=== PATIENT | female | born 1955 | race Caucasian/White ===

== ENCOUNTER 2016-11-22 14:28 | Emergency (ER) | payer MEDICARE ==
--- NOTE | 2016-11-22 14:36 | ED Physician Chart ---
Chief Complaint/HPI - Patient Information Date Seen:: 11/22/16 Time Seen:: 14:30 Chief Complaint:: shortness of breath History of Present Illness:: 61-year-old female history of asthma, complains of acute, worsening, constant, severe, shortness of breath times one week. Has associated nausea but no vomiting. Historian:: Patient Review:: Nurse's Note Reviewed Review of Systems - Review of Systems Other: Complete system review otherwise unremarkable except as noted in history of present illness. Past Medical History - Past Medical History Past Medical History: HTN, Asthma/COPD, Other (recent compression fractures of multiple lumbar vertebrae, fibromyalgia, cyclic vomiting and constant nausea) Family History: None Social History: Non Smoker, No Alcohol, No Drug Use, Surgical History: None Psychiatricy History: None Medication: Reviewed Family Medical History - Family Member Mother History Unknown: Yes Physical Exam - Physical Examination Other:: INITIAL VITAL SIGNS: Reviewed by me GENERAL: Alert and interactive. In mild respiratory distress HEAD: Head is normocephalic and atraumatic EYES: EOMI. PERRL. No scleral icterus. No conjunctival injection ENT: Moist mucous membranes. NECK: Supple. No masses. Full range of motion RESPIRATORY: Slightly tachypneic with bilateral expiratory wheezing. CV: Regular rate and rhythm. No murmurs, rubs, or gallops ABDOMEN: Soft, non-distended, non-tender. No guarding. No rebound. No masses. EXTREMITIES: No deformity. No cyanosis. No edema. SKIN: Warm and dry. No obvious rashes. NEUROLOGIC: Alert and oriented. Face is symmetric. Speech is normal. Moves all extremities equally. Motor and sensory distally intact. Labs/Radiology/EKG Results - Lab Results Results: Lab Results 11/22/16 11/22/16 11/22/16 Range/Units 14:50 14:50 14:50 WBC 6.1 (4.8-10.8) Th/cmm RBC 4.40 (3.80-5.10) Mil/cmm Hgb 13.0 (11.7-15.5) gm/dL Hct 38.5 (35.0-45.0) % MCV 87.4 (81-100) fl MCH 29.5 (27.0-31.0) pg MCHC Differential 33.7 (28.0-36.0) pg RDW 13.0 (11.5-20.0) % Plt Count 217 (150-400) Th/cmm MPV 9.1 fl Neutrophils (Manual) 55 (40-80) % Lymphocytes 30 (20-50) % Monocytes 3 (2-10) % Eosinophils 11 H (0-5) % Basophils 1 (0-3) % Platelet Estimate ADEQUATE (NORMAL) Platelet Morphology NORMAL (NORMAL) RBC Morph Micro Appear NORMAL (NORMAL) PT 10.9 (9.5-11.5) SECONDS INR 1.05 (0.5-1.4) PTT (Actin FS) 25.6 L (26.0-38.0) SECONDS Sodium 137 (136-145) mEq/L Potassium 3.5 (3.5-5.1) mEq/L Chloride 107 (98-107) mEq/L Carbon Dioxide 24.9 (21.0-31.0) mEq/L Anion Gap 8.6 (7.0-16.0) BUN 8 (7-25) mg/dL Creatinine 0.6 (0.6-1.2) mg/dL Est GFR ( Amer) > 60.0 (>90) ml/min Est GFR (Non-Af Amer) > 60.0 ml/min BUN/Creatinine Ratio 13.3 Glucose 94 (70-105) mg/dL Whole Bld Lactic Acid (0.60-1.99) mmol/L Calcium 9.9 (8.6-10.3) mg/dL Total Bilirubin 0.5 (0.3-1.0) mg/dL AST 26 (13-39) U/L ALT 17 (7-52) U/L Alkaline Phosphatase 68 (34-104) U/L Creatine Kinase 78 (30-223) U/L Total Protein 7.3 (6.0-8.3) gm/dL Albumin 4.1 (3.7-5.3) gm/dL Globulin 3.2 gm/dL Albumin/Globulin Ratio 1.3 (1.0-1.8) Lipase (11-82) U/L Urine Source Urine Color Urine Clarity (CLEAR) Urine pH Ur Specific [place] (1.005-1.030) Urine Protein (NEGATIVE) mg/dL Urine Glucose (UA) (NEGATIVE) mg/dL Urine Ketones (NEGATIVE) mg/dL Urine Blood (NEGATIVE) Urine Nitrate (NEGATIVE) Urine Bilirubin (NEGATIVE) Urine Urobilinogen (0.2 - 1.0) E.U./dL Ur Leukocyte Esterase (NEGATIVE) Urine RBC (0-5) /hpf Urine WBC (0-5) /hpf Ur Epithelial Cells (FEW) /lpf Urine Bacteria (NONE SEEN) /hpf 11/22/16 11/22/16 11/22/16 Range/Units 14:50 14:50 15:24 WBC (4.8-10.8) Th/cmm RBC (3.80-5.10) Mil/cmm Hgb (11.7-15.5) gm/dL Hct (35.0-45.0) % MCV (81-100) fl MCH (27.0-31.0) pg MCHC Differential (28.0-36.0) pg RDW (11.5-20.0) % Plt Count (150-400) Th/cmm MPV fl Neutrophils (Manual) (40-80) % Lymphocytes (20-50) % Monocytes (2-10) % Eosinophils (0-5) % Basophils (0-3) % Platelet Estimate (NORMAL) Platelet Morphology (NORMAL) RBC Morph Micro Appear (NORMAL) PT (9.5-11.5) SECONDS INR (0.5-1.4) PTT (Actin FS) (26.0-38.0) SECONDS Sodium (136-145) mEq/L Potassium (3.5-5.1) mEq/L Chloride (98-107) mEq/L Carbon Dioxide (21.0-31.0) mEq/L Anion Gap (7.0-16.0) BUN (7-25) mg/dL Creatinine (0.6-1.2) mg/dL Est GFR ( Amer) (>90) ml/min Est GFR (Non-Af Amer) ml/min BUN/Creatinine Ratio Glucose (70-105) mg/dL Whole Bld Lactic Acid 1.18 (0.60-1.99) mmol/L Calcium (8.6-10.3) mg/dL Total Bilirubin (0.3-1.0) mg/dL AST (13-39) U/L ALT (7-52) U/L Alkaline Phosphatase (34-104) U/L Creatine Kinase (30-223) U/L Total Protein (6.0-8.3) gm/dL Albumin (3.7-5.3) gm/dL Globulin gm/dL Albumin/Globulin Ratio (1.0-1.8) Lipase 6 L (11-82) U/L Urine Source CLEAN C Urine Color YELLOW Urine Clarity CLEAR (CLEAR) Urine pH 8.5 Ur Specific [place] 1.015 (1.005-1.030) Urine Protein TRACE (NEGATIVE) mg/dL Urine Glucose (UA) NEGATIVE (NEGATIVE) mg/dL Urine Ketones TRACE (NEGATIVE) mg/dL Urine Blood NEGATIVE (NEGATIVE) Urine Nitrate NEGATIVE (NEGATIVE) Urine Bilirubin NEGATIVE (NEGATIVE) Urine Urobilinogen 0.2 (0.2 - 1.0) E.U./dL Ur Leukocyte Esterase NEGATIVE (NEGATIVE) Urine RBC NONE SEEN (0-5) /hpf Urine WBC 2-5 (0-5) /hpf Ur Epithelial Cells FEW (FEW) /lpf Urine Bacteria FEW (NONE SEEN) /hpf - Radiology Results Results: CT abdomen and pelvis without contrast per radiology No evidence of bowel obstruction Appendix not well visualized Pancreatic atrophy with mild haziness of the pancreatic fat planes changes associated pancreatitis currently excluded. Please correlate clinically. 7 mm left renal stone with no evidence of hydronephrosis For similar left renal cyst Moderate hiatal hernia Spinal compression deformities may be due to osteopenia most pronounced at L1 50 % loss of height and 3 mm posterior retropulsion. Findings are probably chronic. No increase of the kyphosis. Correlate with clinical findings. Single AP VIEW Portable Chest X-ray was interpreted independently and contemporaneously by Cee Marquez MD: No cardiomegaly Normal mediastinum No lung infiltrates No pneumothorax No soft tissue or bony abnormalities - EKG Interpretations Comments:: 12-lead EKG Interpretation by Cee Marquez MD: Normal Sinus Rhythm with ventricular rate of 64 beats per minute Normal axis Normal intervals No acute ST or T wave changes. No obvious STEMI ED Septic Shock - . Is Septic Shock (SBP<90, OR Lactate>4 mmol\L) present?: No Reassessment (Disposition) - Reassessment Reassessment:: Apparently the patient has a history of chronic nausea and vomiting. She did receive IV antiemetics. Symptoms did greatly improved. She also had exacerbation of her asthma. Gave Solu-Medrol and Decadron. Symptoms improved. We recommend that she follow up with a primary care. Provided prescription for prednisone and Zofran. Gave return to ER precautions. Patient understands and agrees with the plan. - Diagnosis Diagnosis:: Acute wheezing and shortness of breath due to acute asthma exacerbation Acute on chronic nausea and vomiting - Aftercare/Follow up Instructions Aftercare/Follow-Up Instructions:: Counseled pt regarding lab results/diagnosis & need follow up, Refer to Discharge Instructions Medication Prescribed:: Zofran Prednisone - Patient Disposition Discharge/Transfer:: Home Time:: 17:02 Condition at Disposition:: Improved ED Discharge Plan - Patient Disposition Admit/Discharge/Transfer: PT DISCHARGED HOME Condition at Disposition: Improved Prescriptions: Ondansetron [Zofran Odt] 8 mg PO Q8HR #0 odt Prednisone [Deltasone] 20 mg PO DAILY #0 tablet Instructions: Asthma, Adult, Nausea, Adult Accepting Physician: , Primary [Other]
[2016-11-22] MEDS ORDERED: Albuterol/Ipratropium Neb 3 ML AERS HHN ONE ×2 (14:37→14:50)
[2016-11-22] MEDS ORDERED: Prochlorperazine 5 mg/mL 2mL Vial IVP STA (14:38)
--- NOTE | 2016-11-22 15:08 | Diagnostic Imaging Report ---
CHEST X-RAY: AP view INDICATION: pain COMPARISON: None FINDINGS: Chronic lung changes are seen with no focal sulcal pleural effusions. Cardiomegaly is noted. Degenerative changes of the spine are noted. IMPRESSION: No focal consolidation identified. Cardiomegaly.
[2016-11-22 15:14] LABS: HEMATOCRIT 38.5 % (35.0-45.0); MEAN CELL VOLUME 87.4 fl (81-100); MEAN CORPUSCULAR HEMOGLOBIN 29.5 pg (27.0-31.0); MEAN CORPUSCULAR HGB CONC 33.7 pg (28.0-36.0); MEAN PLATELET VOLUME 9.1 fl; PLATELET COUNT 217 Th/cmm (150-400); WHITE BLOOD COUNT 6.1 Th/cmm (4.8-10.8)
[2016-11-22] MEDS ORDERED: Prochlorperazine 5 mg/mL 2mL Vial ONE (15:19)
[2016-11-22 15:22] LABS: INR 1.05 (0.5-1.4); PROTHROMBIN TIME (TEST) 10.9 SECONDS (9.5-11.5)
[2016-11-22 15:23] LABS: ALB/GLOB RATIO 1.3 (1.0-1.8); ALKALINE PHOSPHATASE 68 U/L (34-104); ANION GAP 8.6 (7.0-16.0); BILIRUBIN,TOTAL 0.5 mg/dL (0.3-1.0); BUN - UREA NITROGEN 8 mg/dL (7-25); BUN/CREATININE RATIO 13.3; CALCIUM SERUM 9.9 mg/dL (8.6-10.3); CARBON DIOXIDE 24.9 mEq/L (21.0-31.0); CHLORIDE 107 mEq/L (98-107); CREATININE - SERUM 0.6 mg/dL (0.6-1.2); GLUCOSE 94 mg/dL (70-105); POTASSIUM SERUM 3.5 mEq/L (3.5-5.1); SGOT 26 U/L (13-39); SGPT/ALT 17 U/L (7-52); SODIUM SERUM 137 mEq/L (136-145)
--- NOTE | 2016-11-22 15:29 | Diagnostic Imaging Report ---
CT abdomen and pelvis without intravenous contrast Indication: Abdominal pain, nausea Comparison: None, Technique: Axial images were obtained from the lung bases to the bilateral proximal femurs without IV contrast. Coronal reconstructions were made. total DLP: [id number], CTDI13.2 FINDINGS: Hypoventilatory atelectatic changes of the lung bases are noted. Assessment of the solid organs is limited due to lack of IV contrast. Subcentimeter low-density lesion of the liver is noted to small to characterize but possibly representing cysts. No radiopaque gallstones identified. There is a moderate-sized hiatal hernia. No focal splenic lesions. Pancreatic gland atrophy is noted. Minimal haziness along the peripancreatic fat planes is noted. No focal adrenal lesions. There is a 4 cm left renal cyst. A 7 mm left renal stone is noted. No hydronephrosis. Postsurgical changes of the anterior abdominal are noted. Additional possible changes of pelvis are noted with evidence of prior hysterectomy. No evidence of bowel obstruction. Appendix is not well-visualized. No evidence of free fluid or free air. Mild atherosclerosis is noted. Osteopenia is seen. Previous compression fractures of T11, L1, and L2 are noted most pronounced at L1 with 50% loss of height and 3 mm posterior retropulsion an increased kyphosis at this level. IMPRESSION: No evidence bowel obstruction. The appendix was not visualized. Pancreatic atrophy with mild haziness of the peripancreatic fat planes. Changes associated with pancreatitis cannot be excluded. Please correlate clinically. 7 mm left renal stone. No evidence of hydronephrosis. 4 cm left renal cyst. Moderate sized hiatal hernia. Spinal compression deformities which may be due to osteopenia. This is most pronounced at at L1 with 50% loss of height at this level and 3 mm posterior retropulsion. Findings are probably chronic in etiology. There is increase of the kyphosis at this level. Please correlate with clinical findings.
[2016-11-22 15:52] LABS: BASOPHIL 1 % (0-3); EOSINOPHIL 11 % (0-5); NEUTROPHILS 55 % (40-80); PLATELET ESTIMATE ADEQUATE (NORMAL); PLATELET MORPHOLOGY NORMAL (NORMAL); TOTAL CELLS COUNTED 100
[2016-11-22 16:12] LABS: URINE BACTERIA FEW /hpf (NONE SEEN); URINE BILIRUBIN NEGATIVE (NEGATIVE); URINE BLOOD NEGATIVE (NEGATIVE); URINE COLOR YELLOW; URINE EPITHELIAL CELLS FEW /lpf (FEW); URINE GLUCOSE (UA) NEGATIVE (NEGATIVE); URINE KETONE TRACE mg/dL (NEGATIVE); URINE PH 8.5; URINE PROTEIN TRACE mg/dL (NEGATIVE); URINE RBC NONE SEEN /hpf (0-5); URINE UROBILINOGEN 0.2 E.U./dL (0.2 - 1.0)
== END 2016-11-22 17:20 | disposition home or self-care (01) ==
LOC: ER 14:28
DX: J45.901 Unspecified asthma with (acute) exacerbation (principal); R11.2 Nausea with vomiting, unspecified; I10 Essential (primary) hypertension; J44.9 Chronic obstructive pulmonary disease, unspecified; Z88.8 Allergy status to other drugs, medicaments and biological substances
CPT/HCPCS: 99285; 74176; 96374; 96375; 71010; 96372; 94640; 93005; 36415; 83605; 85007; 85027; 85610; 85730; 81001; 82550; 83690; 80053; 87040 ×2; J1885; J2405; J2930; J0780